=== PATIENT | female | born 1960 | race Caucasian/White ===

== ENCOUNTER → 2024-05-28 | Outpatient (CLI) | payer OTHER, SELFPAY ==
--- NOTE | 2024-05-28 07:56 | US_ITS ---
PROCEDURE: US BREAST BIOPSY 1ST LESION 05/28/2024 REASON FOR EXAM: F, Age 63 y/o , LEFT BREAST MASS Tissue clip placement following biopsy. COMPARISON: Prior exam(s) dating back to . TECHNIQUE: Mediolateral oblique and craniocaudad views of the left breast were obtained. FINDINGS: A tissue clip marker is seen in the deep upper lateral aspect of the left breast at the biopsy site. US/US Breast Biopsy 1st Lesion IMPRESSION: Tissue clip marker is seen at the biopsy site in the upper lateral aspect of th e left breast. BI-RADS 2: BENIGN RECOMMEND ANNUAL MAMMOGRAPHIC SCREENING. Reading Location: [facility]
--- NOTE | 2024-05-28 08:24 | BRBX_PTH ---
PATIENT: MEENA HEDRICK LOC: OPUS U#:[id number] AGE/SX: 63/F ROOM: RE05/28/[address]: Dr. Abner Agarwal MD : 1960 BED: DIS: 05/28/2024 SPEC #: [id number] RECD: 05/28/24 08:36 STATUS: CHAYA RESteven #: [id number] TIANNA: 05/28/24 08:[address]: Abner Agarwal DEPT: SURGICAL PATHOLOGY RECD BY: Destinee Velásquez ENTERED: 05/28/24 09:11 SP TYPE: BREAST BX OTHR DR: Dr. Lida Rashid MD Tissues: Left breast, NOS Procedures: Immunohistochemical Stains Surgery Specimen Level IV IHC Stain ADDITIONAL HEADER OPERATION: Left breast biopsy PRE-OP DIAGNOSIS: Left breast mass TISSUE SUBMITTED: A- Left breast mass 2o'clock, 10cm from nipple Ischemic Time: <30 seconds Fixation Time: 13 hours MICROSCOPIC DIAGNOSIS A. 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 MICROSCOPIC DESCRIPTION Slides are reviewed. These tests were developed and their performance characteristics determined by [facility]. They may not have been cleared or approved by the U.S. Food and Drug Administration. The FDA has determined that such clearance or approval is not necessary. The above immunohistochemical/dualISH markers are ordered and reviewed by the Pathologist. GROSS DESCRIPTION A. Received in formalin in a container labeled with the patient's name, date of , and left breast is a 1.5 cm in length by 0.2 cm in diameter cylindrical and juarez-yellow core biopsy of fibrofatty tissue. There are multiple core biopsy fragments measuring 0.5 x 0.3 x 0.2 cm in aggregate. Submitted in toto in A1. [facility] 05-28-2024 [facility]:[id number], [id number] ADDENDUM ADDENDUM ADDENDUM ADDENDUM ADDENDUM ADDENDUM ADDENDUM ADDENDUM ADDENDUM ADDENDUM ADDENDUM ADDENDUM ADDENDUM ADDENDUM ADDENDUM ADDENDUM 06/06/2024 11:08 ADDENDUM 06/06/2024 11:08 ADDENDUM 06/06/2024 11:08 ADDENDUM 06/06/2024 11:08 ADDENDUM 06/06/2024 11:08 This addendum is to report the IHC stains: ER: positive (95%, intermediate to strong intensity) OH: positive (95%, intermediate to strong intensity) [id number]: negative (1+) All matched controls reacted appropriately. These tests were developed and their performance characteristics determined by [facility]. They may not have been cleared or approved by the U.S. Food and Drug Administration. The FDA has determined that such clearance or approval is not necessary. The above immunohistochemical/dualISH markers are ordered and reviewed by the Pathologist.
--- NOTE | 2024-05-28 09:35 | PCM.OPRPT ---
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 An area of skin was prepped and draped and then injected with local anesthetic. A small dmitriy was made with a scalpel. Under ultrasound guidance the mass was biopsied several times and then a clip was placed into it. A Steri-Strip and bandage were placed over the incision. Patient tolerated the procedure well with minimal bleeding. Surgical Findings: Left breast mass Complications Complications: No
== END | disposition home or self-care (01) ==
PROVIDERS: PCP Internal Medicine; Referring Provider Surgery; Visit Provider Surgery
DX: C50.412 Malignant neoplasm of upper-outer quadrant of left female breast (principal); N60.92 Unspecified benign mammary dysplasia of left breast
CPT/HCPCS: 19083; 88305

== ENCOUNTER 2024-06-12 07:45 | Day surgery (SDC) | payer OTHER, SELFPAY ==
[2024-06-12] VITALS (8 sets, daily range): BP systolic 84–116; BP diastolic 52–72; PULSE 73–83; RESP 14–18; TEMP 36.2–36.4; O2SAT 90–99; BMI 42.2
--- NOTE | 2024-06-12 07:57 | NM_ITS ---
EXAM: Lyons node imaging. CLINICAL HISTORY: Left breast cancer. COMPARISON: Comparison is made with prior mammogram dated May 28, 2024. TECHNIQUE: 600 uCi of Lymphoseek was injected subdermally 1 cm above the left nipple. FINDINGS: 600 uCi of Lymphoseek was injected subdermally 1 cm above the left nipple for sentinel node imaging. NM/Lymph Node Injection Only IMPRESSION: Injection of Lymphoseek for sentinel node imaging. Reading Location: [facility]
--- NOTE | 2024-06-12 08:01 | PCM.HP.STD ---
HPI - General HPI Narrative MEENA HEDRICK, is a 63 F who presents for partial mastectomy and sentinel lymph node biopsy for her left breast cancer. The patient has no new complaints. [facility] Medical History (Updated 06/06/24 @ 09:29 by Miladys Griffin) Vertigo Wears glasses Post-menopausal Cancer Alcohol use Thyroid disease Arthritis High cholesterol Easy bruising Migraine headache Loss of consciousness Gastric reflux Shortness of breath on exertion Former smoker History of edema Breast cancer Hx of breast lump Home Medications ?Medication ?Instructions ?Recorded ?Last Taken ?Type AHCC 1,500 mg PO DAILY 11/28/21 Unknown History aspirin 81 mg tablet,delayed 81 mg PO DAILY 11/28/21 06/06/24 History release (Adult Aspirin Regimen) zjqyqeh-rqmnashwax-OCI-caffeine 30 1 cap PO Q6H PRN headache #7 caps 01/30/24 Unknown Rx mg-50 mg-325 mg-40 mg capsule ascorbic acid (vitamin C) 1,000 mg 1 g PO DAILY 06/06/24 Unknown History tablet (C-1000) calcium 600 mg (as 2 tab PO DAILY 06/06/24 Unknown History carbonate)-vitamin D3 5 mcg (200 unit) tablet (Calcium 600 + D(3)) coenzyme Q10 100 mg capsule (Co 100 mg PO DAILY 06/06/24 Unknown History Q-10) cyanocobalamin (vitamin B-12) 1,000 mcg PO DAILY 06/06/24 Unknown History 1,000 mcg tablet (Vitamin B-12) red yeast rice 600 mg capsule 1,200 mg PO DAILY 06/06/24 Unknown History levothyroxine 150 mcg tablet 150 mcg PO SUMOWEFR #48 tabs 06/09/24 Unknown Rx levothyroxine 175 mcg tablet 175 mcg PO TUTHSA #36 tabs 06/09/24 Unknown Rx Allergy/AdvReac Type Severity Reaction Status Date / Time Penicillins AdvReac Intermediate Hives Verified 06/06/24 09:15 Family History (System 06/02/24 @ 06:11 by Franca Law) Mother Breast cancer Cancer CLL Father Seizures Grandfather CVA (cerebral vascular accident) Surgical History (Updated 06/06/24 @ 09:29 by Miladys Griffin) Hx of colonoscopy Ectopic , tubal H/O thyroidectomy History of cholecystectomy History of ERCP H/O dilation and curettage Hx of appendectomy Social History (System 06/02/24 @ 06:11 by Franca Law) adopted: No household members: significant other housing: house current occupational status: employed current occupation: [employer] pets and animals: Yes pets and animals: dog(s) and turtle(s) sexually active: Yes Smoking Status: Former smoker quit date: 12/06/14 pack-years: 15 Tobacco: How many years used: 25 Electronic Cigarette Use: not used alcohol intake: current alcohol intake frequency: a few times a week substance use type: does not use caffeine: Yes (6) Type: coffee what type of physical activity do you participate in: walking frequency: 1-2 times per week seatbelt use: always do you feel safe at home: Yes Physical Exam Const oriented x3 and no apparent distress Resp normal respiratory effort Cardio regular rate and regular rhythm GI soft to palpation and non-tender Assessment & Plan Assessment/Plan (1) Breast cancer: PLAN: Patient has invasive ductal cancer of the upper outer quadrant of the left breast. She had ultrasound-guided biopsy which came back as invasive ductal carcinoma. I discussed partial mastectomy with sentinel lymph node biopsy and wire localization with the patient in detail. I discussed the procedure as well as the risks including but not limited to bleeding, infection, injury to underlying organs, nerve injury, hematoma formation or need for further surgery. Patient understands all the risks and is willing to proceed. Abner Agarwal MD Pager: [facility] [address] [place] [address], [address] [place] [address] Office:
[2024-06-12] MEDS: Lactated Ringers 1,000 ML 15 ML IV (08:30)
--- NOTE | 2024-06-12 08:30 | BI_ITS ---
PROCEDURE: NEEDLE LOC 1ST LESION 06/12/2024 REASON FOR EXAM: Left breast biopsy. TECHNIQUE: Surgeon performed needle localization. COMPARISON: None BI/Needle Loc 1st Lesion IMPRESSION: WIRE / NEEDLE LOCALIZATION OF THE upper-outer quadrant of the left BREAST. Reading Location: [id number]
--- NOTE | 2024-06-12 08:32 | BI_ITS ---
PROCEDURE: BREAST BIOPSY SPECIMEN 06/12/2024 REASON FOR EXAM: Left breast biopsy. TECHNIQUE: Imaging of the operative specimen was performed. COMPARISON: Prior mammogram dated May 28, 2024. BI/Breast Biopsy Specimen IMPRESSION: The tissue clip marker and wire seen in the surgical specimen. Reading Location: [place] [id number]
--- NOTE | 2024-06-12 08:51 | PCM.PRE.AN2 ---
ASA Classification* ASA Classification ASA Classification: 2 and 3 Assessment & Plan Anesthesia* Anesthesia Assessment Anesthesia Assessment: Discussed sedation and/or anesthesia options, risks, benefits, and alternatives with patient/parents/legal guardian/POA. Questions invited. The patient/parents/legal guardian/POA seems to understand and agrees to proceed with anesthesia plan. Reviewed the physical assessment, medical history, allergy history and patient home medications list prior to surgery/procedure/anesthetic and documented any changes. Performed airway and anesthesia risk assessments. Anesthesia Type Anesthesia Type: General History Source History Obtained from:: Patient and Chart Anesthesia Focused Assessment* Temperature: 97.6 F Pulse Rate: 80 Blood Pressure: 116/72 Respiratory Rate: 18 Pulse Ox: 99 Oxygen Delivery Method: Room Air Airway Assessment Mouth opens: 2 cm Mallampati Score: II Teeth Condition: Intact Neck Range of motion (ROM): Full ROM Focused Labs Anesthesia Preop lab: CBC CHEMISTRY COAG Pre-Assessment Diagnosis/Proposed Procedure Planned Operative Procedure(s): BREAST LUMPECTOMY NL STERO WIRE LOC WITH SLN BIOPSY Anesthesia History Anesthesia History - chemist inorganic: Anesthesia History - chemist inorganic Hx Hospitalization No 06/06/24 09:21 Any Problems With Anesthesia Yes: HYPOTENSION 06/06/24 09:21 Cholinesterase deficiency No 06/06/24 09:21 You/Your Family Experience No 06/06/24 09:21 fever (hyperthermia) with Relationship Recent Exposure to Contagious No 06/12/24 08:23 Disease Does patient have nerve No 06/06/24 09:21 stimulator Patient instructed to have device shut off --Does patient have Pacemaker No 06/12/24 08:23 or ICD? When Was Last Pacemaker Check QUESTION #4 FULL TEXT: You/Your Family Experience fever (hyperthermia) with Anesthesia Any additional information?: No Last Oral Intake Last Oral intake: Last Oral Intake NPO since 07:15 06/12/24 08:23 Meds taken in AM with sips of Yes 06/12/24 08:23 water? Meds patient instructed to levothyroxine 06/12/24 08:23 take am of surgery Any additional information?: No PONV PONV - chemist inorganic: PONV - chemist inorganic Female Yes 06/06/24 09:21 HX of Motion Sickness No 06/06/24 09:21 HX of N/V After Surgery No 06/06/24 09:21 Non-Smoker Yes 06/06/24 09:21 Duration of Surgery greater Yes 06/06/24 09:21 than 60 minutes Number of Risk Factors 3 06/06/24 09:21 PONV Score Moderate Risk 06/06/24 09:21 Any additional information?: No Height & Weight Height & Weight: Anesthesia: Height & Weight Height 5 ft 6 in 06/12/24 08:23 Weight: 118.6 kg 06/12/24 08:23 Body Mass Index (BMI) 42.2 06/12/24 08:23 Respiratory Assessment Respiratory Assessment - chemist inorganic: Respiratory Tract Infection Hx - chemist inorganic Hx Respiratory Tract Infection No 06/06/24 09:21 Any additional information?: No STOP Sleep Apnea STOP Sleep Apnea - chemist inorganic: STOP Sleep Apnea - chemist inorganic Hx Hypertension No 06/06/24 09:21 Hx Sleep Apnea No 06/06/24 09:21 CPAP BIPAP Do you snore loudly (louder No 06/06/24 09:21 than talking or can be heard Do you often feel tired/ Yes 06/06/24 09:21 fatigued/ sleepy during daytime? Has anyone observed you stop No 06/06/24 09:21 breathing during sleep? STOP Results Negative 06/06/24 09:21 QUESTION #5 FULL TEXT : Do you snore loudly (louder than talking or can be heard through closed doors)? Any additional information?: No Tobacco Use History Tobacco Use History - chemist inorganic: Tobacco Use History - chemist inorganic Tobacco Use Smoking Status Former smoker 06/06/24 09:21 Hx Tobacco Use No 06/06/24 09:21 Years Smoking Packs Smoked per Day Smoking Cessation Date was No - quit smoking greater 06/06/24 09:21 within the last 15 years than 15 years ago Hx Smoking Cessation Date 02/19/09 06/06/24 09:21 Hx Smoking Cessation No 06/06/24 09:21 Counseling Any additional information?: No Hematologic Medial History Hematologic Hx - chemist inorganic: Hematologic Medical Hx - documentation improvement specialist Hx of Blood Transfusion No 06/06/24 09:21 Hx of Transfusion in last 3 No 06/06/24 09:21 Months Date of Last Transfusion (if within last 3 months) Ever experience any problems No 06/06/24 09:21 with transfusion(s)? Specify any problems Hx of Preganancy in last 3 No 06/06/24 09:21 Months Nurse Filling Out Transfusion DSCHRIBER 06/06/24 09:21 & Questions: Date: 06/06/24 06/06/24 09:21 Time: 09:23 06/06/24 09:21 Patient unable to answer at this time (ie. confused, unrespo Any additional information?: No /Reproduction History /Reproductive History - chemist inorganic: /Reproductive Hx- chemist inorganic Hx Now No 06/06/24 09:21 Gestational Age (in weeks): EDC: Hx Hx Para Hx Section SAB No 06/06/24 09:21 Any additional information?: No Active Medications Active Medications: Current Medications Generic Name Dose Route Start Last Admin Trade Name Freq PRN Reason Stop Dose Admin Clindamycin Phosphate 900 mg in 50 mls @ 75 mls/hr 06/12/24 09:30 Cleocin IV 06/12/24 10:09 INTRAOP ONE Lactated Ringer's 1,000 mls @ 15 mls/hr 06/12/24 08:00 06/12/24 08:30 IV 15 mls/hr .Q48H RENÉ Administration PFSH Medical History Vertigo Wears glasses Post-menopausal Cancer Alcohol use Thyroid disease Arthritis High cholesterol Easy bruising Migraine headache Loss of consciousness Gastric reflux Shortness of breath on exertion Former smoker History of edema Breast cancer Hx of breast lump Home Medications ?Medication ?Instructions ?Recorded ?Last Taken ?Type AHCC 1,500 mg PO DAILY 11/28/21 Unknown History aspirin 81 mg tablet,delayed 81 mg PO DAILY 11/28/21 06/06/24 History release (Adult Aspirin Regimen) ufxssje-acepmeqowl-BDK-caffeine 30 1 cap PO Q6H PRN headache #7 caps 01/30/24 Unknown Rx mg-50 mg-325 mg-40 mg capsule ascorbic acid (vitamin C) 1,000 mg 1 g PO DAILY 06/06/24 Unknown History tablet (C-1000) calcium 600 mg (as 2 tab PO DAILY 06/06/24 Unknown History carbonate)-vitamin D3 5 mcg (200 unit) tablet (Calcium 600 + D(3)) coenzyme Q10 100 mg capsule (Co 100 mg PO DAILY 06/06/24 06/11/24 History Q-10) cyanocobalamin (vitamin B-12) 1,000 mcg PO DAILY 06/06/24 Unknown History 1,000 mcg tablet (Vitamin B-12) red yeast rice 600 mg capsule 1,200 mg PO DAILY 06/06/24 Unknown History levothyroxine 150 mcg tablet 150 mcg PO SUMOWEFR #48 tabs 06/09/24 06/11/24 Rx levothyroxine 175 mcg tablet 175 mcg PO TUTHSA #36 tabs 06/09/24 06/12/24 07:15 Rx Allergy/AdvReac Type Severity Reaction Status Date / Time Penicillins AdvReac Intermediate Hives Verified 06/12/24 08:19 Family History Mother Breast cancer Cancer CLL Father Seizures Grandfather CVA (cerebral vascular accident) Surgical History Hx of colonoscopy Ectopic , tubal H/O thyroidectomy History of cholecystectomy History of ERCP H/O dilation and curettage Hx of appendectomy Social History adopted: No household members: significant other housing: house current occupational status: employed current occupation: [employer] pets and animals: Yes pets and animals: dog(s) and turtle(s) sexually active: Yes Smoking Status: Former smoker quit date: 12/06/14 pack-years: 15 Tobacco: How many years used: 25 Electronic Cigarette Use: not used alcohol intake: current alcohol intake frequency: a few times a week substance use type: does not use caffeine: Yes (6) Type: coffee what type of physical activity do you participate in: walking frequency: 1-2 times per week seatbelt use: always do you feel safe at home: Yes Review of Systems (Anesthesia) ROS Narrative System reviewed and no additional complaints, except as documented. Physical Exam Const alert and oriented x3 Orientation / Consciousness: awake Resp normal respiratory effort Auscultation: clear to auscultation bilaterally Cardio regular rate, regular rhythm and no murmurs Neuro oriented x3
--- NOTE | 2024-06-12 09:30 | LYMN_PTH ---
PATIENT: MEENA HEDRICK [place] [facility] [place][id number] AGE/SX: 63/F ROOM: RE06/12/[address]: Dr. Abner Agarwal MD : 1960 BED: DIS: 06/12/2024 SPEC #: [id number] RECD: 06/12/24 10:50 STATUS: CHAYA RESteven #: [id number] TIANNA: 06/12/24 09:[address]: Abner Agarwal DEPT: SURGICAL PATHOLOGY RECD BY: Andres Andrew ENTERED: 06/12/24 10:52 SP TYPE: LYMPH NODE OTHR DR: Dr. Lida Rashid MD Tissues: A - LYMPH NODE BIOPSY B - Left breast, NOS Procedures: Frozen Section (charge) Immunohistochemical Stains Frozen Section Add'l ([facility]) Surgery Specimen Level IV IHC Stain ADDITIONAL HEADER OPERATION: Breast, lumpectomy, NL stereo wire localized with sentinel lymph node biopsy PRE-OP DIAGNOSIS: Breast cancer TISSUE SUBMITTED: A- [place] lymph node, B- Left breast mass FROZEN SECTION DIAGNOSIS A. [place] lymph node, biopsy: Negative for macrometastasis. B. Left breast mass, lumpectomy: Margins appear grossly adequate. 06/12/2024 MICROSCOPIC DIAGNOSIS A. Left axilla, sentinel lymph node, biopsy: * Negative for metastasis (0/2) pN0 * Pancytokeratin is negative for metastasis, confirming the histologic impression B. Left breast, mass, excision: * Invasive ductal carcinoma NST, margins free, Grade 2 (tubule 3, nuclear 2, mitosis 1) * pT1b (0.7 cm) * Ductal carcinoma in situ (DCIS), intermediate nuclear grade, extensive, margins free * See Synoptic Report. COMMENT SYNOPTIC REPORT FOR INVASIVE BREAST CARCINOMA Specimen (P=partial, M=mastectomy):?P Laterality?(R=right, L=left):?L Focality (U=unifocal, M=multifocal):?U Tumor size (cm):?0.7 cm Histologic type:?invasive ductal NST Histologic grade:?2 ??? Tubule score (1-3):?3 ??? Nuclear score (1-3):?2 ??? Mitotic score (1-3):?1 Skin, nipple epidermis,?skeletal muscle (I=involved, N=negative, NA=not applicable):?NA Lymphovascular invasion (E=extensive, F=focal, N=not identified):?N Margins of main specimen (P=positive, N=negative):?N Distance to closest margin of main specimen (mm):?5 mm Designation of closest margin of main specimen:?posterior Designation of other margins of main specimen </=1 mm:?NA Re-resection margin status (P=positive, N=negative, NA=not applicable):?NA ? DCIS (P=present, N=not identified):?P ?? Nuclear grade:?intermediate ?? Comedo necrosis (P=present, N=not identified):?P (minute focus) ?? Extensive intraductal component (P=present, N=not identified):?P ?? Margins of main specimen (P=positive, N=negative):?N ?? Distance to closest margin of main specimen (mm):?5 mm ?? Designation of closest margin of main specimen:?posterior ?? Designation of other margins of main specimen </=2 mm:?NA ???Longest span </= 2 mm to margin of main specimen (mm):?NA ?? Re-resection margin status (P=positive, N=negative, NA=not applicable):?NA ? Regional lymph nodes: ?? Total number of lymph nodes:?2 ???Number of sentinel lymph nodes:?2 ?? Number with macrometastases:?0 ?? Number with micrometastases:?0 ?? Number with isolated tumor cells:?0 ???Size of largest sylvia metastasis (mm):?NA ?? Size of extranodal extension (mm) (N=not identified):?NA ? Estrogen receptor:?positive (95%, intermediate to strong intensity) Progesterone receptor:?positive (95%, intermediate to strong intensity HER2 IHC:?negative (1+) HER2 FISH:?NA Specimen in which ER/MI/HER2 performed:?[id number] pTNM:?pT1b pN0 Additional findings:?focal ADH (atypical ductal hyperplasia) Comment:? IHCs utilized in the assessment: Pancytokeratin (A1) E-cadherin (B3) CK5/6 (B3) ? The above synoptic report complies, in slightly modified form, with the guidelines of the [employer] and the Association of Directors of Anatomic and Surgical Pathology for the reporting of cancer specimens ? MICROSCOPIC DESCRIPTION Slides are reviewed. All matched controls reacted appropriately. These tests were developed and their performance characteristics determined by [facility]. They may not have been cleared or approved by the U.S. Food and Drug Administration. The FDA has determined that such clearance or approval is not necessary.? The above immunohistochemical/dualISH?markers are ordered and reviewed by the Pathologist. GROSS DESCRIPTION A. Received fresh for intraoperative consultation in a container labeled with the patient's name, date of , and sentinel lymph node, left are 2 juarez-yellow fragments of fatty tissue measuring 1.1 x 0.4 x 0.3 cm and 1.2 x 1.0 x 0.7 cm. Each are sectioned to reveal rubbery possible lymph node candidates. The possible lymph nodes are submitted entirely for frozen section analysis and the fat is retained. The remaining frozen section remnants are submitted entirely in A1. B. Received fresh for intraoperative consultation in a container labeled with the patient's name, date of , and L breast mass is an oriented left lumpectomy specimen with a short stitch indicating superior margin and long stitch indicating lateral margin. A metal localization wire is protruding from the anterior/lateral margin.The specimen is 6.3 cm from medial to lateral, 4.2 cm from superior to inferior, and 2.4 cm from anterior to posterior. Ink marsh:Gvuomuhi-nesvGtpxoivv-amugeWofqud-qdzOvnpipj-iowjnbEmarjmfl-xklloaBfwbuzcha-black The specimen is serially sectioned from medial to lateral into 9 slices to reveal an ill-defined, white-juarez, and firm mass within slices 3-4, within the medial half of the specimen. A ribbon metal biopsy clip is identified within the mass in slice 3.Mass measurement: 0.7 x 0.6 x 0.6 cm. It is situated to the margins as follows:Posterior: 0.5 cmMedial: 0.6 cmSuperior: 1.0 cmAnterior: 1.1 cmLateral: 1.9 cmInferior: 2.4 cm Situated approximately 1 cm from the mass, within slice 5 is an ill-defined pale-yellow focus of possible fat necrosis measuring 0.5 x 0.5 x 0.5 cm. No clip is identified. It is situated 0.2 cm from the anterior margin, 0.4 cm from the inferior margin, 0.6 cm from the posterior margin, and greater than 1 cm from the remaining margins. The remaining cut surfaces are comprised of approximately 95% juarez-yellow adipose tissue and 5% interspersed white fibrous septa. Supervisor Dehydrogenation sections:B1. Slice 1, perpendicular sections of medial marginB2. Slice 2, adjacent to mass with posterior, medial, and anterior marginsB3. Slice 3, mass at greatest dimension (area of clip) with closest posterior, anterior, and superior marginsB4. Slice 3, uninvolved fatty tissue adjacent to mass to superior, posterior, anterior, and inferior marginsB5. Slice 4, mass to closest anterior and posterior marginB6. Slice 5, uninvolved between mass and area of possible fat necrosis (anterior, superior, posterior margins)B7. Slice 5, area of possible fat necrosis with anterior, inferior, and posterior marginsB8. Slice 6, uninvolved fatty tissue adjacent to possible fat necrosis with anterior, posterior, and inferior marginsB9. Slice 9, perpendicular sections of lateral margin Total formalin fixation time: Between 6 and 72 hours. Time left surgery: 1029 on 06-12-2024. Time placed in formalin: 1050 on 06-12-2024. Cold ischemic time: 21 minutes. [facility] 06/12/2024 CPT:04930p2,[id number] ADDENDUM ADDENDUM ADDENDUM ADDENDUM ADDENDUM ADDENDUM ADDENDUM ADDENDUM ADDENDUM ADDENDUM 07/11/2024 09:14 ADDENDUM 07/11/2024 09:14 ADDENDUM 07/11/2024 09:14 ADDENDUM 07/11/2024 09:14 ADDENDUM 07/11/2024 09:14 ONCOTYPE DX BREAST RECURRENCE SCORE REPORT RECURRENCE SCORE RESULT: 14 DISTANT RECURRANCE RISK AT 9 YEARS: 4% GROUP AVERAGE ABSOLUTE CHEMOTHERAPY BENEIFT: <1% Please see complete above mentioned consultation report in EMR
[2024-06-12] MEDS: Clindamycin 900 MG/50 ML BAG 75 MG IV (09:46)
[2024-06-12] MEDS: 0.9% Normal Saline (Pres. free 10 ML Vial (10:00)
[2024-06-12] MEDS: Isosulfan Blue 1% 5 ML Vial (10:00)
[2024-06-12] MEDS: Bupivacaine 0.25% 30 ML Vial (10:35)
--- NOTE | 2024-06-12 10:42 | OP.PCM_ITS ---
Operative Report (Standard) Operative Information Date of Procedure: 06/12/24 Pre-Operative Diagnosis: Left breast cancer Post-Operative Diagnosis: Left breast cancer Surgery/Procedure Performed: 1. Stereotactic guided wire localization of left breast lesion 2. Left partial mastectomy 3. Left axillary sentinel lymph node biopsy manager student services: Yes Machine Attendant: Mary Sanchez Tasks completed by marketing director assisted living: Opening, Closing and Retracting Type of Anesthesia: General/Regional RN Documented Start/Stop Times: Operation Date: 06/12/24 09:30 Case Time Into Pre-Op 06/12/24 07:55 Out of Pre-Op 06/12/24 09:30 Procedure Start Time: 10:04 Procedure Stop Time: 10:55 Select all DRAINS/GRAFTS/IMPLANTS that apply: None Estimated Blood Loss: 20 Specimen collected: Yes Description of specimen(s) removed: Left axillary sentinel lymph node and left breast mass Description of surgery: Patient was brought to the stereotactic room and placed in the stereotactic table and stereotactic images were obtained. The clip was localized on the computer. Next the skin was prepped and injected with local anesthetic. The wire was placed into the mass and stereotactic images were once again obtained. The wire was deployed and the needle was removed. Mammogram images were obtained. Next the patient was brought to the operating room and general anesthesia was induced. The left breast was prepped and draped and then 5 cc of Lymphazurin was injected in the subareolar space followed by 10 cc of saline. The breast was massaged. The breast was reprepped and draped in the usual sterile fashion. An axillary incision was made and deepened to the axillary fascia which was incised. The probe was used to localize a lymph node that was radioactive. The node did not appear blue. The node was removed after sharp dissection and clips. The 10-second count was 4500. There was no further radioactivity in the left axilla. It was inspected more and no blue lymph nodes were identified. There were no palpable lymph nodes. The axilla was packed with a wet gauze. After the axillary lymph node came back negative for metastasis the axilla was closed with 3-0 Vicryl sutures and a running 4-0 Monocryl suture. Local anesthetic was injected. Next an incision was marked on the breast near the wire and incised. The wire was brought into the incision. Flaps were raised. Using electrocautery the mass was dissected free with the wire. Electrocautery was used to maintain hemostasis. The mass was x-rayed and contained the clip and the wire in its entirety. It was sent out for frozen section and the margins were adequate. The cavity was irrigated and suctioned dry and there was good hemostasis. The skin was closed with interrupted 3-0 Vicryl sutures and a running 4-0 Monocryl suture. Dermabond was applied to both incisions. Fluffs and a surgical bra were applied. Patient was taken to PACU in stable condition and tolerated the procedure well. Synoptic Portion: Element Response Options Operation performed with curative intent. Yes Tracer(s) used to identify sentinel nodes in the upfront surgery (non-neoadj uvant) setting (select all that apply). Dye and radioactive tracer Tracer(s) used to identify sentinel nodes in the neoadjuvant setting (select all that apply). N/A All nodes (colored or non-colored) present at the end of a dye-filled lymphatic channel were removed. Yes All significantly radioactive nodes were removed. Yes All palpably suspicious nodes were removed. Yes Biopsy-proven positive nodes marked with clips prior to chemotherapy were identified and removed. N/A Surgical Findings: None Complications Complications: No Admit VTE Documentation VTE Mechan Device Prophylaxis: SCD's
--- NOTE | 2024-06-12 10:52 | EX.PCM.DISCH ---
Discharge Instructions Diet Discharge Diet: Light diet - advance as tolerated Activity Discharge Activity: May Not Drive (for 2-3 days or while taking narcotic pain medications.) and May Shower May shower in (days): 1 Lifting Restrictions: 15 lbs for 1 week Dressing / Incision Call your doctor if your incision/area has: Continuous Slow Oozing, Sudden Increased Bleeding, Increased Pain/ Swelling, Increased Redness, Foul Smelling Discharge and Swelling at the incision site Call your doctor if you observe: Fever of 101 or Higher Suture Line Care: Avoid Pulling/Pushing and Avoid Pinching/Bending Cleanse incision/area with: Soap & Water Additional Dressing/Incision Instructions:: Remove bulky dressing tomorrow. Follow Up Care Please Follow Up With: Abner Agarwal MD When: Please call to schedule 2 week follow up appointment. [phone] Test Results: Test results from this visit will be discussed in further detail at your follow-up appointment, if applicable. Discharge Plan Admission Attending Provider: Abner Agarwal Primary Care Provider: Lida Rashid Instructions Print Language: Chinese Discharge Orders/Prescriptions Prescriptions: New oxycodone 5 mg Tablet 5 - 10 mg PO Q4H PRN PRN (Reason: Pain Score 4-10) 5 Days Qty: 20 0RF No Action [facility] 1,500 mg PO DAILY Rx Instructions: TAKE 4500MG QD aspirin [Adult Aspirin Regimen] 81 mg tablet,delayed release (DR/EC) 81 mg PO DAILY yaypuuu-eewhklxqux-PTV-caff [id number] mg capsule 1 cap PO Q6H PRN (Reason: headache) Qty: 7 0RF calcium carbonate-vitamin D3 [Calcium 600 + D(3)] 600 mg-5 mcg (200 unit) tablet 2 tab PO DAILY red yeast rice 600 mg capsule 1,200 mg PO DAILY Rx Instructions: give with meal/snack coenzyme Q10 [Co Q-10] 100 mg capsule 100 mg PO DAILY ascorbic acid (vitamin C) [C-1000] 1,000 mg tablet 1 g PO DAILY cyanocobalamin (vitamin B-12) [Vitamin B-12] 1,000 mcg tablet 1,000 mcg PO DAILY levothyroxine 150 mcg tablet 150 mcg PO SUMOWEFR Qty: 48 0RF Rx Instructions: 150 mcg orally M,W,F,Sun; levothyroxine 175 mcg tablet 175 mcg PO TUTHSA Qty: 36 0RF Rx Instructions: 175 mcg orally T,R,Sat; Referrals / Follow Up: Lida Rashid MD [Primary Care Provider] - Disposition Disposition (needs filled in before D/C Order can be placed): Home, Self Care
--- NOTE | 2024-06-12 11:04 | PCM.POST.ANE ---
Anesthesia: Postop Eval I Current Vital Signs Temperature: 97.2 F Pulse Rate: 83 Blood Pressure: 87/63 Respiratory Rate: 14 Pulse Ox: 99 Oxygen Delivery Method: Room Air Assessment Airway patent: Yes Spontaneous unlabored respirations: Yes Mental status: Awake nausea: No Vomiting: No Anesthesia Complication: No Fluid Hydration Crystalloid volume administer (ml): 1,300 Total IV fluid infused: 1,300 Progress Note Anesthesia document: Postop Eval 1 completed: Yes
--- NOTE | 2024-06-12 14:25 | POSTOPAN2_ITS ---
Anesthesia Postop Eval I Sum Postop Eval Completion status Anesthesia document: Postop Eval 1 completed: Yes Anesthesia Postop Eval I Summary Anesthesia Postop Eval I Summary: Anesthesia Postop Eval I: Assessment Summary Airway patent Yes 06/12/24 11:05 CHEMICALS FERMENTATION OPERATOR.[email or web address] Spontaneous unlabored Yes 06/12/24 11:05 CHEMICALS FERMENTATION OPERATOR.HBARR respirations Mental status Awake 06/12/24 11:05 CHEMICALS FERMENTATION OPERATOR.HBARR nausea No 06/12/24 11:05 CHEMICALS FERMENTATION OPERATOR.HBARR Vomiting No 06/12/24 11:05 CHEMICALS FERMENTATION OPERATOR.HBARR Anesthesia Postop Eval I: Fluid Summary Crystalloid volume administer 1,300 06/12/24 11:05 CHEMICALS FERMENTATION OPERATOR.HBARR (ml) Colloids volume administered ( ml) Blood Product volume administered (ml) Total IV fluid infused 1,300 06/12/24 11:05 CHEMICALS FERMENTATION OPERATOR.HBARR Anesthesia Postop Eval I: Summary Notes Anesthesia Complication No 06/12/24 11:05 CHEMICALS FERMENTATION OPERATOR.HBARR Anesthesia Complication Comment: Post-operative progress note Anesthesia: Postop Eval II Evaluation Mental status: Awake and Calm Pain Level: 0 nausea: No Vomiting: No
--- NOTE | 2024-06-12 14:25 | PCM.POSTANE2 ---
Anesthesia Postop Eval I Sum Postop Eval Completion status Anesthesia document: Postop Eval 1 completed: Yes Anesthesia Postop Eval I Summary Anesthesia Postop Eval I Summary: Anesthesia Postop Eval I: Assessment Summary Airway patent Yes 06/12/24 11:05 RECREATION MANAGER.[email or web address] Spontaneous unlabored Yes 06/12/24 11:05 RECREATION MANAGER.HBARR respirations Mental status Awake 06/12/24 11:05 RECREATION MANAGER.HBARR nausea No 06/12/24 11:05 RECREATION MANAGER.HBARR Vomiting No 06/12/24 11:05 RECREATION MANAGER.HBARR Anesthesia Postop Eval I: Fluid Summary Crystalloid volume administer 1,300 06/12/24 11:05 RECREATION MANAGER.HBARR (ml) Colloids volume administered ( ml) Blood Product volume administered (ml) Total IV fluid infused 1,300 06/12/24 11:05 RECREATION MANAGER.HBARR Anesthesia Postop Eval I: Summary Notes Anesthesia Complication No 06/12/24 11:05 RECREATION MANAGER.HBARR Anesthesia Complication Comment: Post-operative progress note Anesthesia: Postop Eval II Evaluation Mental status: Awake and Calm Pain Level: 0 nausea: No Vomiting: No
== END 2024-06-12 12:25 | disposition home or self-care (01) ==
LOC: SDC 07:47 → AC 07:47
PROVIDERS: PCP Internal Medicine; Referring Provider Surgery; Visit Provider Surgery
PROC: (CPT 19301; principal; 2024-06-12 09:15)
DX: D05.12 Intraductal carcinoma in situ of left breast (principal); E78.00 Pure hypercholesterolemia, unspecified; Z87.891 Personal history of nicotine dependence; K21.9 Gastro-esophageal reflux disease without esophagitis; Z79.82 Long term (current) use of aspirin; Z79.890 Hormone replacement therapy
CPT/HCPCS: 19301; 19081; 38525; 00400; 19281; 38792; 76098; 88305; 88331; 88332; 88341; 88342; A4648; A9520; J2405; Q9968